=== PATIENT | male | born 1960 | race Two or more races ===

== ENCOUNTER 2023-04-06 10:43 | Inpatient (IN) | payer OTHER ==
[2023-04-06 10:48] VITALS: BMI 22.8
[2023-04-06] MEDS ORDERED: ONDANSETRON 4 MG/2 ML VIAL IVPUSH ONE (12:41)
[2023-04-06] MEDS ORDERED: FAMOTIDINE 20 MG/50 ML IVPB 20 MG/50 ML MG IVPB ONE ×2 (12:41→13:00)
[2023-04-06] MEDS ORDERED: ONDANSETRON 4 MG/2 ML VIAL ONE (13:00)
[2023-04-06] MEDS: LACTATED RINGERS SOLUTION 1,000 ML/1,000 ML INFUS.BAG IV SCH (13:06)
[2023-04-06 13:07] LABS: BASO % 0.6 % (0-2.0); EOS % 2.1 % (0-4.5); HEMATOCRIT 31.2 % (35.4-49); HEMOGLOBIN 10.9 GM/dL (11.7-16.9); LYMPH % 33.5 % (8-40); MCH 32.2 pg (25.7-33.7); MCHC 34.8 g/dl (32.0-35.9); MEAN CELL VOLUME 92.6 fl (80-96); MONO % 9.5 % (3.8-10.2); NEUT % 54.3 % (42.8-82.8); PLATELET COUNT 210 10^3/uL (134-434); RBC 3.37 M/mm3 (4.00-5.60); RDW 13.2 % (11.9-15.9); WHITE BLOOD COUNT 5.1 K/mm3 (4.0-10.0)
[2023-04-06 13:25] LABS: CHLORIDE 104 mmol/L (98-107); POTASSIUM 3.6 mmol/L (3.5-5.1); SODIUM 142 mmol/L (136-145)
[2023-04-06 13:27] LABS: ALBUMIN 3.2 g/dl (3.4-5.0); CALCIUM 8.3 mg/dL (8.5-10.1)
[2023-04-06 13:28] LABS: ANION GAP 4 MMOL/L (8-16); BLOOD UREA NITROGEN 13.1 mg/dL (7-18); CO2 34 mmol/L (21-32); GLUCOSE,RANDOM 111 mg/dL (74-106); LIPASE 91 U/L (73-393); MAGNESIUM 2.2 mg/dL (1.8-2.4)
[2023-04-06 13:30] LABS: CREATININE 0.7 mg/dL (0.55-1.3); SGOT/AST 30 U/L (15-37); SGPT/ALT 46 U/L (13-61)
[2023-04-06 13:32] LABS: BILIRUBIN,TOTAL 0.5 mg/dL (0.2-1); TOT PROT 6.1 g/dl (6.4-8.2)
[2023-04-06 13:33] LABS: ALK PHOS 48 U/L (45-117)
[2023-04-06] MEDS ORDERED: LACTULOSE 20 GM/30 ML UDC (FOR ORAL USE ONLY) PO ONE (15:28)
[2023-04-06] MEDS ORDERED: ceFAZolin 2 GRAM PREMIX BAG IVPB ONE (15:28)
[2023-04-06] MEDS ORDERED: CEFAZOLIN SODIUM 2 GM in DEXTROSE 5%-WATER 100 ML IVPB ONE (15:45)
[2023-04-06] MEDS ORDERED: CEFAZOLIN SODIUM 2 GM VIAL ONE (16:55)
[2023-04-06] MEDS ORDERED: LACTULOSE 20 GM/30 ML UDC (FOR ORAL USE ONLY) ONE (16:55)
[2023-04-06 18:03] LABS: OPIATES, URI NEGATIVE (NEGATIVE); URINE AMPHETAMINES NEGATIVE (NEGATIVE)
[2023-04-06 18:04] LABS: PHENCYCLIDINE,URINE NEGATIVE (NEGATIVE); URINE BARBITURATES NEGATIVE (NEGATIVE)
[2023-04-06 18:08] LABS: COCAINE, UR POSITIVE (NEGATIVE); METHADONE, UR POSITIVE (NEGATIVE); URINE BENZODIAZEPINES POSITIVE (NEGATIVE)
[2023-04-06] MEDS: THIAMINE HCL 200 MG/2 ML VIAL IVPB SCH (22:10)
[2023-04-06] MEDS: LACTULOSE 20 GM/30 ML UDC (FOR ORAL USE ONLY) PO SCH (22:10)
[2023-04-07] MEDS: LACTATED RINGERS SOLUTION 1,000 ML/1,000 ML INFUS.BAG IV SCH (00:14)
[2023-04-07] MEDS: CEFAZOLIN SODIUM 2 GM in DEXTROSE 5%-WATER 100 ML IVPB SCH ×3 (01:42→16:41)
[2023-04-07] MEDS ORDERED: ceFAZolin 2 GRAM PREMIX BAG IVPB SCH (02:00)
[2023-04-07] MEDS: LACTULOSE 20 GM/30 ML UDC (FOR ORAL USE ONLY) PO SCH ×2 (06:20→13:08)
[2023-04-07] MEDS: THIAMINE HCL 200 MG/2 ML VIAL IVPB SCH ×2 (06:20→13:08)
[2023-04-07] MEDS: methaDONE HCL 40 MG DISPERSABLE TABLET PO SCH (09:01)
[2023-04-07] MEDS: ENOXAPARIN NA (PORCINE) 40 MG/0.4 ML DISP.SYRIN SQ SCH (09:01)
[2023-04-07 10:02] LABS: BASO % 0.4 % (0-2.0); EOS % 3.1 % (0-4.5); HEMATOCRIT 35.6 % (35.4-49); HEMOGLOBIN 11.6 GM/dL (11.7-16.9); INR 1.09 (0.83-1.09); LYMPH % 28.1 % (8-40); MCH 30.9 pg (25.7-33.7); MCHC 32.6 g/dl (32.0-35.9); MONO % 8.9 % (3.8-10.2); NEUT % 59.5 % (42.8-82.8); PLATELET COUNT 256 10^3/uL (134-434); PROTHROMBIN TIME (PATIENT) 12.6 SEC (9.7-13.0); RBC 3.74 M/mm3 (4.00-5.60); RDW 13.1 % (11.9-15.9); WHITE BLOOD COUNT 4.5 K/mm3 (4.0-10.0)
[2023-04-07 10:04] LABS: ACTIVATED PTT 28.1 SECONDS (25.2-36.5)
[2023-04-07 10:18] LABS: POTASSIUM 3.3 mmol/L (3.5-5.1)
[2023-04-07] MEDS ORDERED: POTASSIUM CHLORIDE ORAL LIQUID 20 MEQ/15 ML PO ONE ×2 (10:20→18:15)
[2023-04-07 10:27] LABS: ALBUMIN 3.3 g/dl (3.4-5.0); BLOOD UREA NITROGEN 10.5 mg/dL (7-18); CALCIUM 8.6 mg/dL (8.5-10.1); MAGNESIUM 2.2 mg/dL (1.8-2.4)
[2023-04-07 10:30] LABS: CREATININE 0.7 mg/dL (0.55-1.3); PHOSPHOROUS 3.7 mg/dL (2.5-4.9)
[2023-04-07 10:32] LABS: BILIRUBIN,TOTAL 0.6 mg/dL (0.2-1); TOT PROT 6.4 g/dl (6.4-8.2)
[2023-04-07] MEDS: ZINC OXIDE 20% TOPICAL OINTMENT 30 GM TUBE TP SCH (11:51)
[2023-04-08] MEDS ORDERED: CEFAZOLIN SODIUM 2 GM VIAL ONE (00:06)
[2023-04-08] MEDS: LACTULOSE 20 GM/30 ML UDC (FOR ORAL USE ONLY) PO SCH ×4 (00:13→21:43)
[2023-04-08] MEDS: THIAMINE HCL 200 MG/2 ML VIAL IVPB SCH ×4 (00:14→21:43)
[2023-04-08] MEDS: CEFAZOLIN SODIUM 2 GM in DEXTROSE 5%-WATER 100 ML IVPB SCH ×3 (00:16→16:45)
[2023-04-08] MEDS: ZINC OXIDE 20% TOPICAL OINTMENT 30 GM TUBE TP SCH ×3 (00:17→21:43)
[2023-04-08] MEDS: methaDONE HCL 40 MG DISPERSABLE TABLET PO SCH (05:43)
[2023-04-08 10:05] LABS: BASO % 0.4 % (0-2.0); EOS % 2.2 % (0-4.5); HEMATOCRIT 34.9 % (35.4-49); HEMOGLOBIN 11.3 GM/dL (11.7-16.9); LYMPH % 32.9 % (8-40); MCHC 32.4 g/dl (32.0-35.9); MEAN CELL VOLUME 95.8 fl (80-96); MONO % 8.2 % (3.8-10.2); NEUT % 56.3 % (42.8-82.8); PLATELET COUNT 239 10^3/uL (134-434); RBC 3.64 M/mm3 (4.00-5.60); WHITE BLOOD COUNT 4.2 K/mm3 (4.0-10.0)
[2023-04-08] MEDS: ENOXAPARIN NA (PORCINE) 40 MG/0.4 ML DISP.SYRIN SQ SCH (10:10)
[2023-04-08 10:36] LABS: POTASSIUM 4.6 mmol/L (3.5-5.1)
[2023-04-08 10:45] LABS: CALCIUM 8.7 mg/dL (8.5-10.1)
[2023-04-08 10:47] LABS: ALBUMIN 3.2 g/dl (3.4-5.0); BLOOD UREA NITROGEN 8.2 mg/dL (7-18); MAGNESIUM 2.2 mg/dL (1.8-2.4)
[2023-04-08 10:50] LABS: CREATININE 0.6 mg/dL (0.55-1.3); PHOSPHOROUS 3.5 mg/dL (2.5-4.9)
[2023-04-08 10:52] LABS: BILIRUBIN,TOTAL 0.3 mg/dL (0.2-1); TOT PROT 6.3 g/dl (6.4-8.2)
[2023-04-08] MEDS ORDERED: FUROSEMIDE 40 MG/4 ML INJECTABLE VIAL IVPUSH ONE (14:26)
[2023-04-09] MEDS ORDERED: CEFAZOLIN SODIUM 2 GM VIAL ONE (01:20)
[2023-04-09] MEDS: CEFAZOLIN SODIUM 2 GM in DEXTROSE 5%-WATER 100 ML IVPB SCH ×3 (01:39→18:55)
[2023-04-09] MEDS: methaDONE HCL 40 MG DISPERSABLE TABLET PO SCH (06:14)
[2023-04-09] MEDS: LACTULOSE 20 GM/30 ML UDC (FOR ORAL USE ONLY) PO SCH ×3 (06:14→21:20)
[2023-04-09] MEDS: THIAMINE HCL 200 MG/2 ML VIAL IVPB SCH ×2 (06:14→14:52)
[2023-04-09] MEDS ORDERED: FUROSEMIDE 40 MG TABLET (FP) PO ONE (09:30)
[2023-04-09] MEDS: LISINOPRIL 10 MG TABLET PO SCH (09:52)
[2023-04-09] MEDS: ENOXAPARIN NA (PORCINE) 40 MG/0.4 ML DISP.SYRIN SQ SCH (09:52)
[2023-04-09] MEDS: ZINC OXIDE 20% TOPICAL OINTMENT 30 GM TUBE TP SCH ×2 (09:54→21:20)
[2023-04-09 10:12] LABS: BASO % 0.4 % (0-2.0); EOS % 2.2 % (0-4.5); HEMATOCRIT 34.9 % (35.4-49); HEMOGLOBIN 11.9 GM/dL (11.7-16.9); LYMPH % 28.9 % (8-40); MCH 31.7 pg (25.7-33.7); MCHC 34.1 g/dl (32.0-35.9); MEAN CELL VOLUME 92.9 fl (80-96); MEAN PLT VOLUME 7.5 fl (7.5-11.1); MONO % 8.5 % (3.8-10.2); PLATELET COUNT 243 10^3/uL (134-434); RBC 3.75 M/mm3 (4.00-5.60); RDW 12.9 % (11.9-15.9); WHITE BLOOD COUNT 4.3 K/mm3 (4.0-10.0)
[2023-04-09 10:19] LABS: POTASSIUM 3.9 mmol/L (3.5-5.1)
[2023-04-09 10:26] LABS: ALBUMIN 3.3 g/dl (3.4-5.0); MAGNESIUM 2.1 mg/dL (1.8-2.4)
[2023-04-09 10:29] LABS: BILIRUBIN,TOTAL 0.4 mg/dL (0.2-1); TOT PROT 6.6 g/dl (6.4-8.2)
[2023-04-09 10:30] LABS: CREATININE 0.7 mg/dL (0.55-1.3); PHOSPHOROUS 3.9 mg/dL (2.5-4.9)
[2023-04-10] MEDS: CEFAZOLIN SODIUM 2 GM in DEXTROSE 5%-WATER 100 ML IVPB SCH ×3 (00:23→16:51)
[2023-04-10] MEDS: LACTULOSE 20 GM/30 ML UDC (FOR ORAL USE ONLY) PO SCH ×3 (05:43→22:04)
[2023-04-10] MEDS: methaDONE HCL 40 MG DISPERSABLE TABLET PO SCH (05:43)
[2023-04-10] MEDS: ENOXAPARIN NA (PORCINE) 40 MG/0.4 ML DISP.SYRIN SQ SCH (09:00)
[2023-04-10] MEDS: LISINOPRIL 10 MG TABLET PO SCH (09:00)
[2023-04-10] MEDS: ZINC OXIDE 20% TOPICAL OINTMENT 30 GM TUBE TP SCH ×2 (09:34→22:06)
[2023-04-10 10:15] LABS: BASO % 0.5 % (0-2.0); EOS % 2.4 % (0-4.5); HEMATOCRIT 34.7 % (35.4-49); HEMOGLOBIN 11.5 GM/dL (11.7-16.9); LYMPH % 32.6 % (8-40); MCH 31.5 pg (25.7-33.7); MCHC 33.2 g/dl (32.0-35.9); MEAN CELL VOLUME 95.2 fl (80-96); MEAN PLT VOLUME 7.9 fl (7.5-11.1); MONO % 9.4 % (3.8-10.2); NEUT % 55.1 % (42.8-82.8); PLATELET COUNT 248 10^3/uL (134-434); RBC 3.65 M/mm3 (4.00-5.60); RDW 12.9 % (11.9-15.9)
[2023-04-10 10:34] LABS: POTASSIUM 3.9 mmol/L (3.5-5.1)
[2023-04-10 10:39] LABS: BLOOD UREA NITROGEN 11.6 mg/dL (7-18)
[2023-04-10 10:46] LABS: CREATININE 0.7 mg/dL (0.55-1.3)
[2023-04-10] MEDS ORDERED: FUROSEMIDE 40 MG/4 ML INJECTABLE VIAL IVPUSH ONE (11:41)
[2023-04-10] MEDS ORDERED: CEFAZOLIN SODIUM 2 GM VIAL ONE (16:50)
[2023-04-11] MEDS: CEFAZOLIN SODIUM 2 GM in DEXTROSE 5%-WATER 100 ML IVPB SCH ×4 (00:39→16:48)
[2023-04-11 01:00] VITALS: RESP 18
[2023-04-11 05:32] VITALS: BP 138/68; PULSE 66; TEMP 97.9
[2023-04-11] MEDS: methaDONE HCL 40 MG DISPERSABLE TABLET PO SCH (05:39)
[2023-04-11] MEDS: LACTULOSE 20 GM/30 ML UDC (FOR ORAL USE ONLY) PO SCH (05:41)
[2023-04-11] MEDS: ENOXAPARIN NA (PORCINE) 40 MG/0.4 ML DISP.SYRIN SQ SCH (09:13)
[2023-04-11] MEDS: LISINOPRIL 10 MG TABLET PO SCH (09:13)
[2023-04-11] MEDS: ZINC OXIDE 20% TOPICAL OINTMENT 30 GM TUBE TP SCH (09:14)
[2023-04-11 09:46] LABS: BASO % 0.5 % (0-2.0); EOS % 2.6 % (0-4.5); HEMATOCRIT 36.8 % (35.4-49); HEMOGLOBIN 12.6 GM/dL (11.7-16.9); LYMPH % 29.4 % (8-40); MCH 31.6 pg (25.7-33.7); MCHC 34.2 g/dl (32.0-35.9); MEAN CELL VOLUME 92.5 fl (80-96); MEAN PLT VOLUME 7.3 fl (7.5-11.1); NEUT % 57.5 % (42.8-82.8); PLATELET COUNT 248 10^3/uL (134-434); RBC 3.98 M/mm3 (4.00-5.60); RDW 13.3 % (11.9-15.9); WHITE BLOOD COUNT 6.2 K/mm3 (4.0-10.0)
[2023-04-11 10:08] LABS: POTASSIUM 3.9 mmol/L (3.5-5.1)
[2023-04-11 10:17] LABS: ALBUMIN 3.6 g/dl (3.4-5.0); BLOOD UREA NITROGEN 15.1 mg/dL (7-18); CALCIUM 9.4 mg/dL (8.5-10.1)
[2023-04-11 10:20] LABS: CREATININE 0.8 mg/dL (0.55-1.3)
[2023-04-11 10:21] LABS: BILIRUBIN,TOTAL 0.4 mg/dL (0.2-1); TOT PROT 7.1 g/dl (6.4-8.2)
[2023-04-11] MEDS ORDERED: FUROSEMIDE 40 MG TABLET (FP) PO ONE ×2 (14:36→16:45)
[2023-04-12] MEDS ORDERED: LACTULOSE 20 GM/30 ML UDC (FOR ORAL USE ONLY) PO SCH (10:00)
== END 2023-04-11 18:18 | disposition home or self-care (01) | DRG 383 ==
LOC: JER 10:43 → JERBED 17:08 → J6S 19:18
PROVIDERS: ADMIT Internal Medicine; ATTEND Internal Medicine
DX: L03.115 Cellulitis of right lower limb (principal); L03.116 Cellulitis of left lower limb; G93.41 Metabolic encephalopathy; F11.20 Opioid dependence, uncomplicated; F19.10 Other psychoactive substance abuse, uncomplicated; F17.200 Nicotine dependence, unspecified, uncomplicated; K40.90 Unilateral inguinal hernia, without obstruction or gangrene, not specified as recurrent; F10.10 Alcohol abuse, uncomplicated; R44.1 Visual hallucinations; K80.20 Calculus of gallbladder without cholecystitis without obstruction; R41.82 Altered mental status, unspecified; N43.2 Other hydrocele; K59.00 Constipation, unspecified
CPT/HCPCS: 36415; 70450-TC; 74176-TC; 74178-TC; 76705-TC; 80048; 80053; 80307; 82105; 82140; 82962; 83690; 83735; 84100; 85025; 85610; 85730; 87081; 93005; 93010; 93970-TC; 99285-25; Q9967

== ENCOUNTER 2023-12-30 10:52 | Inpatient (IN) | payer OTHER ==
[2023-12-30 12:43] LABS: BASO % 0.7 % (0-2.0); EOS % 0.9 % (0-4.5); HEMATOCRIT 31.6 % (35.4-49); HEMOGLOBIN 9.7 GM/dL (11.7-16.9); LYMPH % 16.6 % (8-40); MCH 23.6 pg (25.7-33.7); MCHC 30.8 g/dl (32.0-35.9); MEAN CELL VOLUME 76.6 fl (80-96); MONO % 9.1 % (3.8-10.2); NEUT % 72.7 % (42.8-82.8); PLATELET COUNT 564 10^3/uL (134-434); RBC 4.13 M/mm3 (4.00-5.60); RDW 17.8 % (11.9-15.9)
[2023-12-30 13:04] LABS: POTASSIUM 4.2 mmol/L (3.5-5.1)
[2023-12-30 13:06] LABS: ALBUMIN 2.9 g/dl (3.4-5.0); BLOOD UREA NITROGEN 7.4 mg/dL (7-18); CALCIUM 9.2 mg/dL (8.5-10.1)
[2023-12-30 13:09] LABS: CREATININE 0.9 mg/dL (0.55-1.3)
[2023-12-30 13:11] LABS: BILIRUBIN,TOTAL 0.5 mg/dL (0.2-1); TOT PROT 7.9 g/dl (6.4-8.2)
[2023-12-30 13:19] LABS: ERYTHROCYTE SEDIMENTATION RATE 79 mm/hr (0-20)
[2023-12-30] MEDS ORDERED: VANCOMYCIN 1 GRAM (PRE-DOCKED) 1,000 MG/250 ML BAG IVPB ONE (13:43)
[2023-12-30] MEDS: VANCOMYCIN 1,000 MG in DEXTROSE 5%-WATER - 250 ML IVPB ONE (13:54)
[2023-12-30 17:41] VITALS: BMI 25.8
[2023-12-30] MEDS: FOLIC ACID 1 MG TABLET (FP) PO SCH (17:45)
[2023-12-30] MEDS: DEXTROSE 5%-NORMAL SALINE 1,000 ML IV SCH (17:45)
[2023-12-30] MEDS: THIAMINE HCL 200 MG/2 ML VIAL IVPB SCH (17:45)
[2023-12-31] MEDS: LIDOCAINE HCL 5% TOP OINTMENT 50 GM TUBE TP ONE (03:21)
[2023-12-31 08:39] LABS: BASO % 0.7 % (0-2.0); EOS % 0.8 % (0-4.5); HEMATOCRIT 26.3 % (35.4-49); HEMOGLOBIN 8.4 GM/dL (11.7-16.9); LYMPH % 19.9 % (8-40); MCH 24.2 pg (25.7-33.7); MCHC 31.9 g/dl (32.0-35.9); MEAN CELL VOLUME 75.8 fl (80-96); MONO % 16.2 % (3.8-10.2); NEUT % 62.4 % (42.8-82.8); PLATELET COUNT 413 10^3/uL (134-434); RBC 3.48 M/mm3 (4.00-5.60); RDW 17.9 % (11.9-15.9)
[2023-12-31 08:50] LABS: POTASSIUM 3.6 mmol/L (3.5-5.1)
[2023-12-31] MEDS: ENOXAPARIN NA (PORCINE) 40 MG/0.4 ML DISP.SYRIN SQ SCH (09:12)
[2023-12-31 09:20] LABS: ALBUMIN 2.4 g/dl (3.4-5.0); BLOOD UREA NITROGEN 12.3 mg/dL (7-18); CALCIUM 8.8 mg/dL (8.5-10.1)
[2023-12-31 09:21] LABS: MAGNESIUM 1.9 mg/dL (1.8-2.4)
[2023-12-31 09:23] LABS: CREATININE 0.7 mg/dL (0.55-1.3)
[2023-12-31 09:24] LABS: PHOSPHOROUS 3.4 mg/dL (2.5-4.9)
[2023-12-31 09:25] LABS: TOT PROT 6.7 g/dl (6.4-8.2)
[2023-12-31 09:27] LABS: BILIRUBIN,TOTAL 0.5 mg/dL (0.2-1)
[2023-12-31] MEDS ORDERED: methaDONE HCL 10 MG TABLET (FOR DETOX USE ONLY) PO SCH (10:00)
[2023-12-31] MEDS: PIPERACILLIN/TAZOB 3.375 GM 3.375 GM in DEXTROSE 5%-WATER - 50 ML IVPB SCH (14:32)
[2023-12-31] MEDS: LACTULOSE 20 GM/30 ML UDC (FOR ORAL USE ONLY) PO SCH (14:32)
[2023-12-31] MEDS: PANTOPRAZOLE SODIUM 40 MG VIAL IVPUSH SCH (14:32)
[2023-12-31 17:33] LABS: IRON SERUM 15 ug/dL (50-175)
[2023-12-31 17:34] LABS: TOTAL IRON BINDING CAPACITY 395 ug/dL (250-450)
[2024-01-01 08:09] LABS: POTASSIUM 4.2 mmol/L (3.5-5.1)
[2024-01-01 08:16] LABS: CALCIUM 8.8 mg/dL (8.5-10.1)
[2024-01-01 08:17] LABS: ALBUMIN 2.7 g/dl (3.4-5.0); BLOOD UREA NITROGEN 13.7 mg/dL (7-18)
[2024-01-01 08:20] LABS: CREATININE 0.7 mg/dL (0.55-1.3)
[2024-01-01 08:21] LABS: BILIRUBIN,TOTAL 0.7 mg/dL (0.2-1); TOT PROT 7.2 g/dl (6.4-8.2)
[2024-01-01 08:28] LABS: BASO % 0.7 % (0-2.0); EOS % 1.3 % (0-4.5); HEMATOCRIT 27.4 % (35.4-49); HEMOGLOBIN 8.5 GM/dL (11.7-16.9); LYMPH % 22.7 % (8-40); MCH 23.6 pg (25.7-33.7); MCHC 31.1 g/dl (32.0-35.9); MEAN CELL VOLUME 75.8 fl (80-96); MEAN PLT VOLUME 6.4 fl (7.5-11.1); MONO % 9.5 % (3.8-10.2); NEUT % 65.8 % (42.8-82.8); PLATELET COUNT 435 10^3/uL (134-434); RBC 3.61 M/mm3 (4.00-5.60); RDW 17.7 % (11.9-15.9); WHITE BLOOD COUNT 4.9 K/mm3 (4.0-10.0)
[2024-01-01] MEDS: ACETAMINOPHEN 500 MG TABLET (FP) PO ONE (18:33)
[2024-01-02 07:35] LABS: BASO % 0.4 % (0-2.0); EOS % 0.4 % (0-4.5); HEMATOCRIT 26.1 % (35.4-49); HEMOGLOBIN 8.1 GM/dL (11.7-16.9); LYMPH % 15.3 % (8-40); MCH 23.7 pg (25.7-33.7); MEAN CELL VOLUME 76.4 fl (80-96); MEAN PLT VOLUME 6.1 fl (7.5-11.1); MONO % 12.2 % (3.8-10.2); NEUT % 71.7 % (42.8-82.8); PLATELET COUNT 441 10^3/uL (134-434); RBC 3.42 M/mm3 (4.00-5.60); RDW 17.7 % (11.9-15.9); WHITE BLOOD COUNT 5.7 K/mm3 (4.0-10.0)
[2024-01-02 07:51] LABS: POTASSIUM 3.9 mmol/L (3.5-5.1)
[2024-01-02 07:56] LABS: ALBUMIN 2.8 g/dl (3.4-5.0); CALCIUM 9.1 mg/dL (8.5-10.1)
[2024-01-02 07:57] LABS: BLOOD UREA NITROGEN 13.1 mg/dL (7-18)
[2024-01-02 07:58] LABS: CREATININE 0.7 mg/dL (0.55-1.3)
[2024-01-02 08:00] LABS: BILIRUBIN,TOTAL 0.7 mg/dL (0.2-1); TOT PROT 7.2 g/dl (6.4-8.2)
[2024-01-02] MEDS: IRON SUCROSE INJECTION 200 MG in SODIUM CHLORIDE 100 ML IVPB ONE (11:40)
[2024-01-03 08:48] VITALS: RESP 18
[2024-01-03] MEDS: PANTOPRAZOLE 40 MG TABLET PO SCH (09:20)
[2024-01-04] MEDS ORDERED: MELATONIN 5 MG TABLETS PO PRN (02:04)
[2024-01-04] MEDS: ACETAMINOPHEN 1000 MG/100 ML BAG IVPB ONE (04:29)
[2024-01-04] MEDS: IRON SUCROSE INJECTION 200 MG in SODIUM CHLORIDE 100 ML IVPB ONE (09:10)
[2024-01-04 15:28] VITALS: BP 145/69; PULSE 72; TEMP 97.7
== END 2024-01-04 18:31 | disposition home or self-care (01) | DRG 383 ==
LOC: JER 10:52 → JERBED 15:41 → J6S 17:15
PROVIDERS: ADMIT Internal Medicine; ATTEND Family Medicine
DX: L03.115 Cellulitis of right lower limb (principal); L03.116 Cellulitis of left lower limb; F11.20 Opioid dependence, uncomplicated; L97.919 Non-pressure chronic ulcer of unspecified part of right lower leg with unspecified severity; F19.10 Other psychoactive substance abuse, uncomplicated; D64.9 Anemia, unspecified; K74.60 Unspecified cirrhosis of liver; D50.9 Iron deficiency anemia, unspecified
CPT/HCPCS: 36415; 70450-TC; 73590-TC-LT-FY; 73590-TC-RT-FY; 73610-TC-LT-FY; 73610-TC-RT-FY; 73630-TC-LT; 73630-TC-RT-FY; 76705-TC; 80053; 80061; 80307; 82140; 82272; 82607; 82728; 82962; 83036; 83540; 83550; 83690; 83735; 84100; 84443; 85025; 85651; 86140; 87070; 87186; 87205; 87522; 93005; 93010; 99285-25; J0131; J1756

== ENCOUNTER 2024-02-11 10:39 | Inpatient (IN) | payer BC, OTHER ==
[2024-02-11] MEDS ORDERED: ACETAMINOPHEN INJECTION 100 ML IVPB ONE (14:19)
[2024-02-11] MEDS ORDERED: VANCOMYCIN 1 GRAM (PRE-DOCKED) 1,000 MG/250 ML BAG IVPB ONE (14:19)
[2024-02-11 14:20] LABS: BASO % 0.1 % (0-2.0); EOS % 0.7 % (0-4.5); HEMOGLOBIN 9.3 GM/dL (11.7-16.9); LYMPH % 14.2 % (8-40); MCH 25.9 pg (25.7-33.7); MCHC 32.1 g/dl (32.0-35.9); MEAN CELL VOLUME 80.6 fl (80-96); MEAN PLT VOLUME 6.8 fl (7.5-11.1); MONO % 9.8 % (3.8-10.2); NEUT % 75.2 % (42.8-82.8); PLATELET COUNT 299 10^3/uL (134-434); RBC 3.59 M/mm3 (4.00-5.60); RDW 20.2 % (11.9-15.9); WHITE BLOOD COUNT 5.6 K/mm3 (4.0-10.0)
[2024-02-11] MEDS ORDERED: PIPERACILLIN/TAZOB 3.375 GM 3.375 GM/50 ML BAG IVPB ONE ×2 (14:21→17:53)
[2024-02-11 14:26] LABS: INR 1.03 (0.83-1.09); PROTHROMBIN TIME (PATIENT) 11.8 SEC (9.7-13.0)
[2024-02-11 14:29] LABS: ACTIVATED PTT 25.3 SECONDS (25.2-36.5)
[2024-02-11 14:36] LABS: POTASSIUM 3.7 mmol/L (3.5-5.1)
[2024-02-11 14:38] LABS: CALCIUM 8.8 mg/dL (8.5-10.1)
[2024-02-11 14:39] LABS: BLOOD UREA NITROGEN 13.2 mg/dL (7-18); MAGNESIUM 1.8 mg/dL (1.8-2.4)
[2024-02-11 14:42] LABS: CREATININE 0.6 mg/dL (0.55-1.3)
[2024-02-11 14:43] LABS: BILIRUBIN,TOTAL 0.4 mg/dL (0.2-1); TOT PROT 7.4 g/dl (6.4-8.2)
[2024-02-11] MEDS: ACETAMINOPHEN 1000 MG/100 ML BAG IVPB ONE (14:45)
[2024-02-11] MEDS: PIPERACILLIN/TAZOB 3.375 GM 3.375 GM in DEXTROSE 5%-WATER - 50 ML IVPB ONE (14:46)
[2024-02-11] MEDS: VANCOMYCIN 1,000 MG in DEXTROSE 5%-WATER - 250 ML IVPB ONE (14:54)
[2024-02-11 15:05] LABS: ERYTHROCYTE SEDIMENTATION RATE 47 mm/hr (0-20)
[2024-02-11] MEDS: INSULIN (NOVOLOG) ASPART 100 UNITS/ML 10ML VIAL SQ SCH (17:51)
[2024-02-11] MEDS ORDERED: PIPERACILLIN/TAZOB 3.375 GM 3.375 GM in DEXTROSE 5%-WATER - 50 ML IVPB SCH (18:00)
[2024-02-11] MEDS: PIPERACILLIN/TAZOB 3.375 GM 3.375 GM in DEXTROSE 5%-WATER - 50 ML IVPB SCH (18:01)
[2024-02-11] MEDS ORDERED: ACETAMINOPHEN 325 MG TABLET (FP) ONE (20:55)
[2024-02-11] MEDS: ACETAMINOPHEN 325 MG TABLET (FP) PO PRN (21:00)
[2024-02-11 23:44] VITALS: BMI 25.5
[2024-02-12 08:59] LABS: BASO % 0.3 % (0-2.0); EOS % 1.9 % (0-4.5); HEMATOCRIT 30.1 % (35.4-49); HEMOGLOBIN 9.7 GM/dL (11.7-16.9); LYMPH % 23.4 % (8-40); MCH 26.2 pg (25.7-33.7); MCHC 32.2 g/dl (32.0-35.9); MEAN CELL VOLUME 81.4 fl (80-96); MEAN PLT VOLUME 6.5 fl (7.5-11.1); MONO % 12.7 % (3.8-10.2); NEUT % 61.7 % (42.8-82.8); PLATELET COUNT 311 10^3/uL (134-434); RBC 3.69 M/mm3 (4.00-5.60); RDW 19.6 % (11.9-15.9); WHITE BLOOD COUNT 4.4 K/mm3 (4.0-10.0)
[2024-02-12 09:08] LABS: POTASSIUM 3.4 mmol/L (3.5-5.1)
[2024-02-12 09:10] LABS: CALCIUM 8.3 mg/dL (8.5-10.1)
[2024-02-12 09:11] LABS: MAGNESIUM 1.8 mg/dL (1.8-2.4)
[2024-02-12 09:14] LABS: CREATININE 0.6 mg/dL (0.55-1.3); PHOSPHOROUS 3.2 mg/dL (2.5-4.9)
[2024-02-12 09:15] LABS: BILIRUBIN,TOTAL 0.5 mg/dL (0.2-1); TOT PROT 7.4 g/dl (6.4-8.2)
[2024-02-12] MEDS: FOLIC ACID 1 MG TABLET (FP) PO SCH (10:43)
[2024-02-12] MEDS: PANTOPRAZOLE 40 MG TABLET PO SCH (10:43)
[2024-02-12] MEDS: ENOXAPARIN NA (PORCINE) 40 MG/0.4 ML DISP.SYRIN SQ SCH (10:43)
[2024-02-12] MEDS: LISINOPRIL 10 MG TABLET PO SCH (10:43)
[2024-02-12] MEDS: FUROSEMIDE 20 MG TABLET (FP) PO SCH (10:43)
[2024-02-12] MEDS ORDERED: INSULIN ASPART SLIDING SCALE (NOVOLOG) 1 VIAL SQ ONE (11:11)
[2024-02-12] MEDS: POTASSIUM CHLORIDE TABS 20 MEQ TABLET.ER (FP) PO ONE (17:20)
[2024-02-12] MEDS: PIPERACILLIN/TAZOB 3.375 GM 3.375 GM in DEXTROSE 5%-WATER - 50 ML IVPB SCH (17:20)
[2024-02-13 10:40] LABS: HIV INTERPRETATION NEGATIVE (NEGATIVE)
[2024-02-13] MEDS ORDERED: methaDONE HCL 40 MG DISPERSABLE TABLET PO SCH (11:00)
[2024-02-14] MEDS ORDERED: DEXTROSE 50%-WATER 25 GM/50 ML DISP.SYRIN ONE (06:03)
[2024-02-14] MEDS: DEXTROSE 50%-WATER 25 GM/50 ML DISP.SYRIN IVPUSH ONE (06:26)
[2024-02-14] MEDS: IRON SUCROSE INJECTION 200 MG in SODIUM CHLORIDE 100 ML IVPB ONE (16:29)
[2024-02-15 12:22] VITALS: RESP 18
[2024-02-16] MEDS ORDERED: CEFTRIAXONE 2 GM in DEXTROSE 5%-WATER 100 ML IVPB SCH (10:00)
[2024-02-16 15:12] VITALS: BP 104/67; PULSE 63; TEMP 98.7
[2024-02-16] MEDS: CEFTRIAXONE 2 GM in DEXTROSE 5%-WATER 100 ML IVPB SCH (16:24)
== END 2024-02-16 17:44 | disposition home or self-care (01) | DRG 383 ==
LOC: JER 10:39 → JERBED 12:52 → J5S 22:33 → J6S 02-12 08:46
PROVIDERS: ADMIT Internal Medicine; ATTEND Internal Medicine
DX: L03.116 Cellulitis of left lower limb (principal); L03.115 Cellulitis of right lower limb; I10 Essential (primary) hypertension; B87.9 Myiasis, unspecified; F11.20 Opioid dependence, uncomplicated; E55.9 Vitamin D deficiency, unspecified; R19.5 Other fecal abnormalities; F17.210 Nicotine dependence, cigarettes, uncomplicated; R79.89 Other specified abnormal findings of blood chemistry; E61.1 Iron deficiency; L97.828 Non-pressure chronic ulcer of other part of left lower leg with other specified severity; L97.818 Non-pressure chronic ulcer of other part of right lower leg with other specified severity; Z59.00 Homelessness unspecified; Z86.19 Personal history of other infectious and parasitic diseases
CPT/HCPCS: 36415; 73590-TC-LT-FY; 73590-TC-RT-FY; 73610-TC-LT-FY; 73610-TC-RT-FY; 73630-TC-LT; 73630-TC-RT-FY; 76705-TC; 80053; 82272; 82728; 82947; 82962; 83540; 83550; 83735; 84100; 84443; 84466; 85025; 85610; 85651; 85730; 86140; 86705; 86707; 87040; 87070; 87076; 87186; 87205; 87340; 87350; 87389; 87522; 93005; 93010; 93970-TC; 97116-GP; 97162-GP; 99285-25; J0131; J1756